=== PATIENT | female | born 1990 | race African-American/Black ===

== ENCOUNTER 2021-01-12 15:12 | Emergency (ER) | payer OTHER ==
[2021-01-12 15:21] VITALS: RESP 18; TEMP 98.7
[2021-01-12] MEDS ORDERED: ONDANSETRON 4 MG/2 ML VIAL IVP STA (15:41)
[2021-01-12] MEDS ORDERED: SODIUM CHLORIDE 0.9% 1,000 ML IV STA (15:41)
[2021-01-12 16:21] LABS: Basophils # (A) 0.1 k/uL (0-0.2); Basophils % (A) 1 %; Eosinophils # (A) 0.2 k/uL (0-0.7); Eosinophils % (A) 2 %; HCT 33.8 % (34.0-46.0); HGB 11.6 gm/dL (11.4-16.0); Lymphocytes % (A) 20 %; MCH 28.7 pg (25.0-35.0); MCHC 34.3 g/dL (31.0-37.0); MCV 83.6 fL (80.0-100.0); Monocytes # (A) 0.6 k/uL (0-1.0); Monocytes % (A) 6 %; Neutrophils # (A) 6.9 k/uL (1.3-7.7); Neutrophils % (A) 69 %; Platelet Count 211 k/uL (150-450); RBC 4.05 m/uL (3.80-5.40); RDW 14.6 % (11.5-15.5); WBC 9.9 k/uL (3.8-10.6)
[2021-01-12 16:35] LABS: Appearance,Urine Clear (Clear); Bilirubin,Urine Negative (Negative); Blood,Urine Negative (Negative); Color,Urine Yellow; Glucose,Urine (UA) Negative (Negative); Ketones,Urine Trace (Negative); Leukocyte Esterase,Urine Negative (Negative); Nitrite,Urine Negative (Negative); PH, Urine 6.5 (5.0-8.0); Protein,Urine Negative (Negative); Specific Gravity,Urine 1.028 (1.001-1.035); Urobilinogen,Urine <2.0 mg/dL (<2.0)
--- NOTE | 2021-01-12 16:37 | ED ---
General Adult HPI - General Chief complaint: Altered Mental Status Stated complaint: Nausea,Dizziness Time Seen by Provider: 01/12/21 15:28 Source: patient, RN notes reviewed Mode of arrival: ambulatory - History of Present Illness Initial comments: 30-year-old female without significant past medical history presents to the emergency room for abdominal pain. Patient which she has had right lower quadrant abdominal pain for about a week now. Patient states that she since teo t time she has also had nausea. Denies vomiting. Denies diarrhea. Patient states her the past few days she has felt that she has "brain fog." States that when she puts her head down almost back up she sometimes has black vision and feels lightheaded. Denies headache.Patient has no other complaints at this time including shortness of breath, chest pain, abdominal pain, nausea or vomiting, headache, or visual changes. - Related Data Previous Rx's Medication Instructions Recorded Ondansetron [Zofran ODT] 4 mg PO Q8HR PRN #15 tab 01/12/21 Allergies Allergy/AdvReac Type Severity Reaction Status Date / Time azithromycin Allergy Confusion Verified 01/12/21 15:17 prednisone AdvReac Rash/Hives Verified 01/12/21 15:17 Review of Systems ROS Statement: Those systems with pertinent positive or pertinent negative responses have been documented in the HPI. ROS Other: All systems not noted in ROS Statement are negative. Past Medical History Past Medical History: No Reported History History of Any Multi-Drug Resistant Organisms: None Reported Past Surgical History: No Surgical Hx Reported Past Psychological History: Anxiety, Depression Smoking Status: Never smoker Past Alcohol Use History: None Reported Past Drug Use History: None Reported General Exam General appearance: alert, in no apparent distress Head exam: Present: atraumatic, normocephalic, normal inspection Eye exam: Present: normal appearance, PERRL, EOMI. Absent: scleral icterus, conjunctival injection, periorbital swelling ENT exam: Present: normal exam, mucous membranes moist Neck exam: Present: normal inspection, full ROM. Absent: tenderness, meningismus, lymphadenopathy Respiratory exam: Present: normal lung sounds bilaterally. Absent: respiratory distress, wheezes, rales, rhonchi, stridor Cardiovascular Exam: Present: regular rate, normal rhythm, normal heart sounds. Absent: systolic murmur, diastolic murmur, rubs, gallop, clicks GI/Abdominal exam: Present: soft, tenderness (Mild right lower quadrant tenderness), normal bowel sounds. Absent: distended, guarding, rebound, rigid Course Vital Signs 01/12/21 15:18 Temperature 98.7 F Pulse Rate 87 Respiratory 18 Rate Blood Pressure 101/65 O2 Sat by Pulse 100 Oximetry EKG Findings - EKG Comments: EKG Findings:: Normal sinus rhythm, ventricular rate 67, ME interval 156, QTc 382 Medical Decision Making - Medical Decision Making Vitals are stable. Patient is well-appearing. Patient presents for nausea as well as some mild right lower quadrant abdominal pain. Rates her pain at a 3 out of 10. She also presents for what she calls "brain fog." States sometimes she just feels a little out of it. States that when she puts her head down almost to back off she would sometimes get black vision and feel like she is going to pass out. EKG showed a normal sinus rhythm. Chest x-ray showed a normal chest. CBC is unremarkable. CMP does show evidence of dehydration CT abdomen and pelvis did show a 4.3 cm cyst that is likely ovarian on the right. Also 2 cm left ovarian cyst. Patient is not severe. It is not consistent with torsion. Patient reevaluated after fluids and antiemetics. Feels much better. Patient can be discharged home to follow up outpatient with her [employer] regarding ovarian cyst. We will send her home with some Zofran for the nausea. She will return here for any worsening symptoms. I did discuss strict return murmurs including significant pain of the right lower quadrant. - Lab Data Result diagrams: 01/12/21 16:00 01/12/21 16:00 Lab Results 01/12/21 01/12/21 01/12/21 Range/Units 16:00 16:00 16:00 WBC 9.9 (3.8-10.6) k/uL RBC 4.05 (3.80-5.40) m/uL Hgb 11.6 (11.4-16.0) gm/dL Hct 33.8 L (34.0-46.0) % MCV 83.6 (80.0-100.0) fL MCH 28.7 (25.0-35.0) pg MCHC 34.3 (31.0-37.0) g/dL RDW 14.6 (11.5-15.5) % Plt Count 211 (150-450) k/uL MPV 9.0 Neutrophils % 69 % Lymphocytes % 20 % Monocytes % 6 % Eosinophils % 2 % Basophils % 1 % Neutrophils # 6.9 (1.3-7.7) k/uL Lymphocytes # 2.0 (1.0-4.8) k/uL Monocytes # 0.6 (0-1.0) k/uL Eosinophils # 0.2 (0-0.7) k/uL Basophils # 0.1 (0-0.2) k/uL Sodium (137-145) mmol/L Potassium (3.5-5.1) mmol/L Chloride (98-107) mmol/L Carbon Dioxide (22-30) mmol/L Anion Gap mmol/L BUN (7-17) mg/dL Creatinine (0.52-1.04) mg/dL Est GFR (CKD-EPI)AfAm (>60 ml/min/1.73 sqM) Est GFR (CKD-EPI)NonAf (>60 ml/min/1.73 sqM) Glucose (74-99) mg/dL Calcium (8.4-10.2) mg/dL Total Bilirubin (0.2-1.3) mg/dL AST (14-36) U/L ALT (4-34) U/L Alkaline Phosphatase (38-126) U/L Total Protein (6.3-8.2) g/dL Albumin (3.5-5.0) g/dL Amylase (30-110) U/L Lipase (23-300) U/L Urine Color Yellow Urine Appearance Clear (Clear) Urine pH 6.5 (5.0-8.0) Ur Specific Sylvester 1.028 (1.001-1.035) Urine Protein Negative (Negative) Urine Glucose (UA) Negative (Negative) Urine Ketones Trace H (Negative) Urine Blood Negative (Negative) Urine Nitrite Negative (Negative) Urine Bilirubin Negative (Negative) Urine Urobilinogen <2.0 (<2.0) mg/dL Ur Leukocyte Esterase Negative (Negative) Urine HCG, Qual Not Detected (Not Detectd) 01/12/21 Range/Units 16:00 WBC (3.8-10.6) k/uL RBC (3.80-5.40) m/uL Hgb (11.4-16.0) gm/dL Hct (34.0-46.0) % MCV (80.0-100.0) fL MCH (25.0-35.0) pg MCHC (31.0-37.0) g/dL RDW (11.5-15.5) % Plt Count (150-450) k/uL MPV Neutrophils % % Lymphocytes % % Monocytes % % Eosinophils % % Basophils % % Neutrophils # (1.3-7.7) k/uL Lymphocytes # (1.0-4.8) k/uL Monocytes # (0-1.0) k/uL Eosinophils # (0-0.7) k/uL Basophils # (0-0.2) k/uL Sodium 139 (137-145) mmol/L Potassium 4.4 (3.5-5.1) mmol/L Chloride 104 (98-107) mmol/L Carbon Dioxide 29 (22-30) mmol/L Anion Gap 6 mmol/L BUN 18 H (7-17) mg/dL Creatinine 0.75 (0.52-1.04) mg/dL Est GFR (CKD-EPI)AfAm >90 (>60 ml/min/1.73 sqM) Est GFR (CKD-EPI)NonAf >90 (>60 ml/min/1.73 sqM) Glucose 89 (74-99) mg/dL Calcium 9.5 (8.4-10.2) mg/dL Total Bilirubin <0.1 L (0.2-1.3) mg/dL AST 20 (14-36) U/L ALT 13 (4-34) U/L Alkaline Phosphatase 80 (38-126) U/L Total Protein 6.6 (6.3-8.2) g/dL Albumin 4.0 (3.5-5.0) g/dL Amylase 78 (30-110) U/L Lipase 115 (23-300) U/L Urine Color Urine Appearance (Clear) Urine pH (5.0-8.0) Ur Specific Sylvester (1.001-1.035) Urine Protein (Negative) Urine Glucose (UA) (Negative) Urine Ketones (Negative) Urine Blood (Negative) Urine Nitrite (Negative) Urine Bilirubin (Negative) Urine Urobilinogen (<2.0) mg/dL Ur Leukocyte Esterase (Negative) Urine HCG, Qual (Not Detectd) Disposition Clinical Impression: Dehydration, Ovarian cyst Disposition: HOME SELF-CARE Condition: Good Instructions (If sedation given, give patient instructions): Ovarian Cyst (ED) Additional Instructions: Please take Zofran as needed for nausea. Please follow-up with your doctor in one to 2 days. Return to the emergency room for any worsening symptoms. Prescriptions: Ondansetron [Zofran ODT] 4 mg PO Q8HR PRN #15 tab PRN Reason: Nausea Is patient prescribed a controlled substance at d/c from ED?: No Referrals: Nonstaff,Physician [Primary Care Provider] - 1-2 days Time of Disposition: 18:02
[2021-01-12 16:42] LABS: ALT 13 U/L (4-34); AST 20 U/L (14-36); African American GFR (CKD) >90 (>60 ml/min/1.73 sqM); Alkaline Phosphatase 80 U/L (38-126); Amylase 78 U/L (30-110); Anion Gap 6 mmol/L; Blood Urea Nitrogen 18 mg/dL (7-17); Calcium 9.5 mg/dL (8.4-10.2); Carbon Dioxide 29 mmol/L (22-30); Chloride 104 mmol/L (98-107); Glucose 89 mg/dL (74-99); Lipase 115 U/L (23-300); Non-African American GFR(CKD) >90 (>60 ml/min/1.73 sqM); Potassium 4.4 mmol/L (3.5-5.1); Sodium 139 mmol/L (137-145); Total Bilirubin <0.1 mg/dL (0.2-1.3); Total Protein 6.6 g/dL (6.3-8.2)
--- NOTE | 2021-01-12 17:24 | CT ---
EXAMINATION TYPE: CT abdomen pelvis w con DATE OF EXAM: 01/12/2021 COMPARISON: None HISTORY: Generalized abdominal pain. CT DLP: 1021.7 mGycm Automated exposure control for dose reduction was used. CONTRAST: Performed with IV Contrast, patient injected with 100ml mL of Isovue 300. Images obtained from the diaphragm to the floor the pelvis with IV contrast. Lung bases are clear. There is no pleural effusion. Heart size is normal. There is no pericardial eff usion. Liver spleen stomach pancreas gallbladder appear intact. The bile ducts are not dilated. There is no adrenal mass. Kidneys show satisfactory contrast opacification. There is no hydronephrosi s. Ureters are not dilated. There is no retroperitoneal adenopathy. Appendix is posterior and appears normal. The bladder distends smoothly. Uterus is anteverted. There is IUD in the uterine fundus. There is 4.3 cm thin wall cyst in the pelvi s on the right side that is probably ovarian cyst. There is 2 cm left ovarian cyst. There is no free fluid in the pelvis. There is no mesenteric edema. There is no ascites or free air. There is no bowel obstruction. There i s normal excretion of contrast on the delayed images. Lumbar vertebra have normal alignment. Disc spaces are fairly normal. Bony pelvis is intact. The hip joints are intact. IMPRESSION: Bilateral ovarian cysts. Normal appendix.
--- NOTE | 2021-01-12 17:25 | XR ---
EXAMINATION TYPE: XR chest 2V DATE OF EXAM: 01/12/2021 COMPARISON: NONE HISTORY: Nausea. Pain. TECHNIQUE: 2 views FINDINGS: Heart and mediastinum are normal. Lungs are clear. Diaphragm is normal. Bony thorax appears normal. IMPRESSION: Normal chest
[2021-01-12 18:11] VITALS: BP 107/72; PULSE 74
== END 2021-01-12 18:10 | disposition home or self-care (01) ==
LOC: EC 15:12
DX: N83.201 Unspecified ovarian cyst, right side (principal); N83.202 Unspecified ovarian cyst, left side; F32.9 Major depressive disorder, single episode, unspecified
CPT/HCPCS: 36415; 93005; 80053; 82150; 83690; 85025; 81003; 81025; 71046; 74177; 99284; 96374; 96361 ×2; J2405; Q9967